=== PATIENT | male | born 1935 | race Two or more races ===

== ENCOUNTER → 2020-06-18 08:00 | Outpatient (CLI) | payer OTHER | END | disposition home or self-care (01) | LOC: PPH VACUNA 08:00 | PROVIDERS: ATTEND Emergency Medicine Pediatric Emergency Medicine | DX: Z23 Encounter for immunization (principal) ==

== ENCOUNTER 2020-07-09 00:01 | Outpatient (CLI) | payer OTHER | END 2020-07-09 00:03 | disposition home or self-care (01) | LOC: PPH VACUNA 00:01 | PROVIDERS: ATTEND Emergency Medicine Pediatric Emergency Medicine | DX: Z23 Encounter for immunization (principal) ==